=== PATIENT | male | born 1990 | race Caucasian/White ===

== ENCOUNTER 2017-08-22 08:52 | Day surgery (SDC) | payer BC ==
[2017-08-17 15:02] VITALS: BMI 24.4
--- NOTE | 2017-08-22 07:11 | P.GSHP ---
History of Present Illness H&P Date: 08/22/17 CHIEF COMPLAINT:Rectal bleeding HISTORY OF PRESENT ILLNESS: The patient is a 27-year-old male who presents for colon screen. Lower endoscopy was offered for further evaluation and management. PAST MEDICAL HISTORY: Please see list. PAST SURGICAL HISTORY: Please see list. MEDICATIONS: Please see list. ALLERGIES: Please see list. SOCIAL HISTORY: No illicit drug use FAMILY HISTORY: No reports of Crohn disease or ulcerative colitis. REVIEW OF ORGAN SYSTEMS: CONSTITUTIONAL: No reports of fevers or chills. PHYSICAL EXAM: VITAL SIGNS: Stable GENERAL: Well-developed pleasant in no acute distress. HEENT: No scleral icterus. Extraocular movements grossly intact. Moist buccal mucosa. NECK: Supple without lymphadenopathy. CHEST: Unlabored respirations. Equal bilateral excursions. CARDIOVASCULAR: Regular rate and rhythm. Distal 2+ pulses. ABDOMEN: Soft, nontender, nondistended. MUSCULOSKELETAL: No clubbing, cyanosis, or edema. ASSESSMENT: 1. Rectal bleeding PLAN: 1. Recommend proceeding with a lower endoscopy Past Medical History Additional Past Medical History / Comment(s): has been having some bleeding with bowel movements off and on past 2 months History of Any Multi-Drug Resistant Organisms: None Reported Past Surgical History: No Surgical Hx Reported Past Anesthesia/Blood Transfusion Reactions: Motion Sickness Smoking Status: Never smoker - Past Family History Mother Family Medical History: No Reported History Medications and Allergies Home Medications Medication Instructions Recorded Confirmed Type No Known Home Medications [No 08/17/17 08/17/17 History Known Home Medications] Allergies Allergy/AdvReac Type Severity Reaction Status Date / Time Penicillins Allergy Unknown Verified 08/17/17 14:58 Childhood
[~2017-08-22 08:52] MED LIST: LACTATED RINGERS 1,000 ML IV SCH; LIDOCAINE 1% 20 ML VIAL (10MG/ML) FOR IV START INTRADERMA PRN
[2017-08-22 10:06] VITALS: TEMP 98.4
[2017-08-22] MEDS ORDERED: PROPOFOL 10 MG/ML 20 ML VIAL IV ONE (10:48)
[2017-08-22] MEDS ORDERED: MIDAZOLAM 2 MG/2 ML VIAL ONE (10:48)
[2017-08-22] MEDS ORDERED: LIDOCAINE 1% INJ 10MG/ML (20 ML MDV) ONE (10:48)
--- NOTE | 2017-08-22 11:30 | P.PCN ---
Date of Procedure: 08/22/17 Description of Procedure: PREOPERATIVE DIAGNOSIS: History of rectal bleeding. Family history of Crohn's disease. POSTOPERATIVE DIAGNOSIS: History of rectal bleeding. Family history of Crohn's disease. Anal fissure, chronic Internal hemorrhoids, grade 2 OPERATION: Colonoscopy to the ileocecal valve and appendiceal orifice. Colonoscopy with random cold forceps biopsy SURGEON: Florinda Bradley MD. ANESTHESIA: MAC. INDICATIONS: The patient is a 27-year-old male who presents for colonoscopy screening. Benefits and risks were described and informed consent was obtained. DESCRIPTION OF PROCEDURE: The patient had undergone Gatorade, MiraLAX and Dulcolax prep. He had been brought into the operating room and laid in the left lateral decubitus position. After adequate intravenous sedation, the rectum was examined with 2% lidocaine jelly. External hemorrhoids were encountered. The rectal tone was within normal limits. No lesions were palpated in the rectal vault. An Olympus colonoscope was advanced until the ileocecal valve and appendiceal orifice were clearly viewed. The prep was excellent with clear visualization of the mucosal folds. The scope was removed with visualization of each mucosal fold. No scattered diverticulosis was encountered. No colonic polyps were found. No evidence of focal colitis was found. Cold biopsy forceps were obtained for family history of Crohn's disease or colitis including rectal bleeding and abdominal pain. Retroflexion of the scope demonstrated grade 2 internal hemorrhoids without active bleeding or inflammation. Anal fissures were confirmed, chronic. The colon was desufflated. The patient had tolerated the procedure well. Withdrawal time was over 6 minutes. FINDINGS: Internal hemorrhoids, grade 2 External prolapsed hemorrhoids. No arteriovenous malformations. No adenomatous polyps. Random biopsies throughout colon for history of Crohn's disease and colitis Anal fissure. RECOMMENDATIONS: Lower endoscopy as needed. Plan - Discharge Summary New Discharge Prescriptions: No Action No Known Home Medications [No Known Home Medications] Discharge Medication List No Known Home Medications [No Known Home Medications] 08/17/17 [History]
[2017-08-22 11:47] VITALS: BP 119/78; PULSE 64; RESP 18
== END 2017-08-22 11:55 | disposition home or self-care (01) ==
LOC: ORWHC2ENDO 08:52
PROVIDERS: ATTEND Surgery Plastic and Reconstructive Surgery
DX: Z83.79 Family history of other diseases of the digestive system (principal); K60.1 Chronic anal fissure; K64.1 Second degree hemorrhoids; K64.4 Residual hemorrhoidal skin tags; Z88.0 Allergy status to penicillin
CPT/HCPCS: 88305; 45380; J2250; J2001; J2704